=== PATIENT | female | born 1995 | race Caucasian/White ===

== ENCOUNTER 2019-07-27 13:45 | Emergency (ER) | payer MEDICAID ==
[~2019-07-27] VITALS: Ht 162.6 cm; Wt 90.7 kg
[2019-07-27 14:01] VITALS: Ht 162.6 cm; Wt 90.7 kg
[2019-07-27 15:26] VITALS: BP 132/89
== END 2019-07-27 15:26 | disposition home or self-care (01) ==
LOC: ED 13:45
DX: H10.31 Unspecified acute conjunctivitis, right eye (principal)